=== PATIENT | female | born 1935 | race Caucasian/White ===

== ENCOUNTER → 2017-03-07 | Outpatient (CLI) | payer OTHER ==
[~2017-03-07] MED LIST: ALBUTEROL SULF0.5 M1 INH; ANTI-GAS80 MG PO; ANTIVERT12.5 MG PO; ASPIR-TRIN325 MG PO; CEPHALEXIN500 M1 PO; CLARITIN10 MG PO; CLONIDINE HCL0.1 M1 PO; COUMADIN0.5 M1 PO; COUMADIN0.5 MG PO; COUMADIN3 M1 PO; COUMADIN5 M1 IV; CRESTOR20 MG PO; Catapres-Tts 10.1 MG PO; DEMADEX20 MG PO; DOCUSATE SODIU100 M2 PO; DURICEF500 MG PO; FAMOTIDINE20 MG PO; GLYCOLAX17 GM/DOSE PO; GOOD NEIGHBOR650 MG PO; HUMULIN R100 U/ML SC; HYDROCHLOROTHIA25 MG PO; IMDUR SA60 M1 PO; LEVAQUIN750 MG PO; LISINOPRIL40 MG PO; LOPRESSOR50 M1 PO; LOPRESSOR50 MG PO; Lopressor25 MG PO; MEDROL DOSEPAK4 MG PO; METOPROLOL50 MG PO; MIRALAX POWDER17 G1 PO; NEXIUM40 MG PO; NITROSTAT0.4 MG SL; NORVASC5 MG PO; NYSTATIN 150 M150 ML PO; NYSTATIN100000 U/M PO; PEPCID20 MG PO; PLAVIX75 MG PO; PREMARIN0.625 MG PO; PROTONIX40 MG PO; REGLAN5 MG PO; SENNA CONCENTR8.6 MG PO; TRAMADOL HCL50 MG PO; TRAMADOL50 MG PO; VICODIN 5/500 505 MG PO; VICODIN 500 MG-1 TAB PO; VITAMIN D32000 IU PO; XANAX0.25 MG PO; XANAX0.5 MG PO; ZESTRIL,PRINIVI10 MG PO; ZESTRIL,PRINIVI40 MG PO; ZESTRIL,PRINIVIL5 MG PO; ZESTRIL40 MG PO
== END | disposition home or self-care (01) ==
LOC: US 15:25
DX: M79.605 Pain in left leg (principal); R60.0 Localized edema

== ENCOUNTER → 2017-05-11 | Outpatient (CLI) | payer OTHER ==
[2017-05-11 14:45] LABS: INTERNATIONAL NORM RATIO 2.4 (2.0-3.5); PROTHROMBIN TIME 26.9 SECONDS (9.0-12.4)
== END | disposition home or self-care (01) ==
LOC: LAB 13:26
PROVIDERS: Family Medicine
DX: I73.9 Peripheral vascular disease, unspecified (principal)

== ENCOUNTER → 2017-06-15 | Outpatient (CLI) | payer OTHER ==
[2017-06-15 12:50] LABS: INTERNATIONAL NORM RATIO 1.2 (2.0-3.5); PROTHROMBIN TIME 12.4 SECONDS (9.0-12.4)
== END | disposition home or self-care (01) ==
LOC: LAB 11:44
PROVIDERS: Family Medicine
DX: I73.9 Peripheral vascular disease, unspecified (principal)

== ENCOUNTER → 2017-07-12 | Outpatient (CLI) | payer OTHER ==
[2017-07-12 11:00] LABS: INTERNATIONAL NORM RATIO 1.2 (2.0-3.5); PROTHROMBIN TIME 13.1 SECONDS (9.0-12.4)
== END | disposition home or self-care (01) ==
LOC: LAB 10:06
PROVIDERS: Family Medicine
DX: I73.9 Peripheral vascular disease, unspecified (principal)

== ENCOUNTER → 2017-07-27 | Outpatient (CLI) | payer OTHER ==
[2017-07-27 14:31] LABS: INTERNATIONAL NORM RATIO 2.8 (2.0-3.5)
== END | disposition home or self-care (01) ==
LOC: LAB 13:42
PROVIDERS: Family Medicine
DX: I73.9 Peripheral vascular disease, unspecified (principal)

== ENCOUNTER → 2017-08-17 | Outpatient (CLI) | payer OTHER | END | disposition home or self-care (01) | LOC: US 14:47 | DX: R60.0 Localized edema (principal) ==

== ENCOUNTER → 2017-09-15 | Outpatient (CLI) | payer OTHER ==
[2017-09-15 15:53] LABS: INTERNATIONAL NORM RATIO 3.8 (2.0-3.5)
== END | disposition home or self-care (01) ==
LOC: LAB 14:37
PROVIDERS: Family Medicine
DX: I73.9 Peripheral vascular disease, unspecified (principal)

== ENCOUNTER → 2017-09-22 | Outpatient (CLI) | payer OTHER ==
[2017-09-22 15:45] LABS: INTERNATIONAL NORM RATIO 1.6 (2.0-3.5)
== END | disposition home or self-care (01) ==
LOC: LAB 14:43
PROVIDERS: Family Medicine
DX: I73.9 Peripheral vascular disease, unspecified (principal)

== ENCOUNTER → 2017-10-23 | Outpatient (CLI) | payer OTHER ==
[2017-10-23 10:28] LABS: BASO % 0.1 % (0.0-1.0); EOS # 0.1 10*3/uL (0.0-0.4); EOS % 0.5 % (1.0-4.0); HEMATOCRIT 41.6 % (37.0-47.0); HEMOGLOBIN 14.4 g/dl (12.0-16.0); LYMPH # 2.5 10*3/uL (1.3-4.4); LYMPH % 19.3 % (27.0-41.0); MEAN CELL VOLUME 91.8 fl (81.0-99.0); MEAN CORPUSCULAR HGB 31.8 pg (27.0-31.0); MEAN CORPUSCULAR HGB CONC 34.6 g/dl (33.0-37.0); MEAN PLATELET VOLUME 10.5 fl (9.6-12.3); MONO # 0.9 10*3/uL (0.1-1.0); NEUT # 9.4 10*3/uL (2.3-7.9); NEUT % 72.3 % (47.0-73.0); PLATELET COUNT AUTOMATED 263 10*3/uL (130-400); RED BLOOD COUNT 4.53 10*6/uL (4.10-5.10); RED CELL DISTRI WIDTH 15.9 % (0-14.5)
[2017-10-23 10:50] LABS: BILIRUBIN NEGATIVE (NEGATIVE); BLOOD TRACE-INTACT (NEGATIVE); CLARITY CLOUDY (CLEAR); COLOR YELLOW (YELLOW); GLUCOSE NEGATIVE (NEGATIVE); KETONE NEGATIVE (NEGATIVE); LEUKO ESTERASE NEGATIVE (NEGATIVE); NITRITE NEGATIVE (NEGATIVE); UROBILINOGEN 0.2 E.U./dl (0.2-1.0)
[2017-10-23 10:55] LABS: ALBUMIN 3.3 gm/dl (3.1-4.5); BUN 22 mg/dl (7-24); CHLORIDE 102 mmol/L (98-107); POTASSIUM 5.2 mmol/L (3.5-5.1); SODIUM 137 mmol/L (136-145)
[2017-10-23 11:05] LABS: BACTERIA 3+; WBC 16-20 wbc/hpf (0-5)
[2017-10-23 11:07] LABS: ALKALINE PHOSPHATASE 78 U/L (45-117); BILIRUBIN, DIRECT < 0.1 mg/dL (0.0-0.2); CHOLESTEROL 177 mg/dL (<200); CREATININE 0.74 mg/dL (0.55-1.02); HDL CHOLESTEROL 53 mg/dl (40-60); LDL CHOLESTEROL 46 mg/dL (9-159); SGOT/AST 17 IU/L (3-35); SGPT/ALT 31 U/L (12-78); T3 UPTAKE 34 % (31-39); THYROXINE (T4) TOTAL 7.2 ug/dl (4.8-13.9); TOTAL PROTEIN 7.3 gm/dL (6.4-8.2); TRIGLYCERIDES 390 mg/dl (<150); VLDL CHOLESTEROL 78 mg/dL (6-40)
[2017-10-23 11:15] LABS: INTERNATIONAL NORM RATIO 4.5 (2.0-3.5)
== END | disposition home or self-care (01) ==
LOC: LAB 10:01
PROVIDERS: Family Medicine; Social Worker Clinical
DX: Z13.220 Encounter for screening for lipoid disorders (principal); Z11.59 Encounter for screening for other viral diseases; Z13.0 Encounter for screening for diseases of the blood and blood-forming organs and certain disorders involving the immune mechanism; Z13.1 Encounter for screening for diabetes mellitus; Z13.228 Encounter for screening for other metabolic disorders; R68.89 Other general symptoms and signs; I73.9 Peripheral vascular disease, unspecified; E78.5 Hyperlipidemia, unspecified; I10 Essential (primary) hypertension

== ENCOUNTER → 2017-10-26 | Outpatient (CLI) | payer OTHER ==
[2017-10-26 13:14] LABS: INTERNATIONAL NORM RATIO 2.1 (2.0-3.5)
== END | disposition home or self-care (01) ==
LOC: LAB 12:09
PROVIDERS: Family Medicine
DX: I73.9 Peripheral vascular disease, unspecified (principal)

== ENCOUNTER 2017-11-16 11:03 | Emergency (ER) | payer OTHER ==
[~2017-11-16] VITALS: Ht 154.9 cm; Wt 59.0 kg
[2017-11-16 11:09] VITALS: BP 165/44
== END 2017-11-16 13:53 | disposition home or self-care (01) ==
LOC: ED 11:03
DX: S81.812A Laceration without foreign body, left lower leg, initial encounter (principal); Z88.0 Allergy status to penicillin; Z88.5 Allergy status to narcotic agent; Z79.899 Other long term (current) drug therapy; Z90.49 Acquired absence of other specified parts of digestive tract; Z95.1 Presence of aortocoronary bypass graft; W51.XXXA Accidental striking against or bumped into by another person, initial encounter; Y93.01 Activity, walking, marching and hiking; Y92.098 Other place in other non-institutional residence as the place of occurrence of the external cause; Y99.8 Other external cause status

== ENCOUNTER 2017-11-18 00:01 | Emergency (ER) | payer OTHER ==
[~2017-11-18] VITALS: Ht 157.4 cm; Wt 61.2 kg
[2017-11-18 00:10] VITALS: BP 170/60
[2017-11-18] MEDS ORDERED: CLINDAMYCIN HC300 MG PO (01:41)
== END 2017-11-18 02:09 | disposition home or self-care (01) ==
LOC: ED 00:01
DX: T81.4XXA Infection following a procedure, initial encounter (principal); L08.89 Other specified local infections of the skin and subcutaneous tissue; Z88.0 Allergy status to penicillin; Z88.5 Allergy status to narcotic agent; Z88.8 Allergy status to other drugs, medicaments and biological substances; Z79.899 Other long term (current) drug therapy; Z90.49 Acquired absence of other specified parts of digestive tract; Z95.1 Presence of aortocoronary bypass graft; Z71.6 Tobacco abuse counseling

== ENCOUNTER → 2017-12-06 | Outpatient (CLI) | payer OTHER ==
[~2017-12-06] MED LIST changes: +CLINDAMYCIN HC300 MG PO
[2017-12-06 11:45] LABS: INTERNATIONAL NORM RATIO 2.3 (2.0-3.5)
== END | disposition home or self-care (01) ==
LOC: LAB 02:16 → WOUNDCARE 02:16
PROVIDERS: Family Medicine
DX: I73.9 Peripheral vascular disease, unspecified (principal)

== ENCOUNTER → 2017-12-13 | Outpatient (CLI) | payer OTHER | END | disposition home or self-care (01) | LOC: WOUNDCARE 01:49 | DX: I87.332 Chronic venous hypertension (idiopathic) with ulcer and inflammation of left lower extremity (principal); L97.222 Non-pressure chronic ulcer of left calf with fat layer exposed; Z90.710 Acquired absence of both cervix and uterus ==

== ENCOUNTER → 2017-12-20 | Outpatient (CLI) | payer OTHER | END | disposition home or self-care (01) | LOC: WOUNDCARE 03:05 | DX: I87.332 Chronic venous hypertension (idiopathic) with ulcer and inflammation of left lower extremity (principal); L97.222 Non-pressure chronic ulcer of left calf with fat layer exposed; Z90.710 Acquired absence of both cervix and uterus; Z95.5 Presence of coronary angioplasty implant and graft; Z95.820 Peripheral vascular angioplasty status with implants and grafts ==

== ENCOUNTER → 2017-12-22 | Outpatient (CLI) | payer OTHER | END | disposition home or self-care (01) | LOC: WOUNDCARE 10:00 | DX: I87.332 Chronic venous hypertension (idiopathic) with ulcer and inflammation of left lower extremity (principal); L97.222 Non-pressure chronic ulcer of left calf with fat layer exposed; Z90.710 Acquired absence of both cervix and uterus ==

== ENCOUNTER → 2017-12-27 | Outpatient (CLI) | payer OTHER ==
[2017-12-27 13:15] LABS: INTERNATIONAL NORM RATIO 6.4 (2.0-3.5)
== END | disposition home or self-care (01) ==
LOC: LAB 00:46 → WOUNDCARE 00:46
PROVIDERS: Family Medicine
DX: I70.203 Unspecified atherosclerosis of native arteries of extremities, bilateral legs (principal); I73.9 Peripheral vascular disease, unspecified; L97.222 Non-pressure chronic ulcer of left calf with fat layer exposed; I87.332 Chronic venous hypertension (idiopathic) with ulcer and inflammation of left lower extremity

== ENCOUNTER → 2018-01-02 | Outpatient (CLI) | payer OTHER ==
[2018-01-02 12:20] LABS: INTERNATIONAL NORM RATIO 1.1 (2.0-3.5)
== END | disposition home or self-care (01) ==
LOC: LAB 11:20
PROVIDERS: Family Medicine
DX: I73.9 Peripheral vascular disease, unspecified (principal)

== ENCOUNTER → 2018-03-31 | Outpatient (CLI) | payer OTHER | END | disposition home or self-care (01) | LOC: US 09:58 | DX: R60.0 Localized edema (principal); M79.661 Pain in right lower leg ==

== ENCOUNTER → 2018-05-15 | Outpatient (CLI) | payer OTHER ==
[~2018-05-15] MED LIST changes: +AMINOPHYLLIN200 MG PO; +CARTIA XT240 MG PO; +CLONIDINE0.2 MG PO; -CRESTOR20 MG PO; +CRESTOR40 M1 PO; +GLIPIZIDE ER10 M1 PO; +GLIPIZIDE5 MG PO; +HYDROCODON-ACE1 EACH PO; +IMDUR SA30 MG PO; +ISRADIPINE2.5 MG PO; +LASIX40 MG PO; +LISINOPRIL2.5 MG PO; +LOPRESSOR100 M1 PO; -LOPRESSOR50 M1 PO; +SENEXON-S TABL1 EACH PO; +WARFARIN2 MG PO
[2018-05-15 17:14] LABS: BUN 11 mg/dl (7-24); CHLORIDE 103 mmol/L (98-107); POTASSIUM 4.3 mmol/L (3.5-5.1); SODIUM 139 mmol/L (136-145)
== END | disposition home or self-care (01) ==
LOC: LAB 16:32
PROVIDERS: Nurse Practitioner Family
DX: R60.0 Localized edema (principal)

== ENCOUNTER 2018-05-28 12:45 | Inpatient (IN) | payer OTHER ==
[2018-05-28] VITALS (8 sets, daily range): BP systolic 125–154; BP diastolic 59–87
[~2018-05-28] VITALS: Ht 157.4 cm; Wt 58.5 kg
--- NOTE | ~2018-05-28 | PR ---
[place], [place] PROGRESS NOTE NAME: BHARATH MCDONALD UNIT #: [id number] ROOM: 516 DOCTOR: LASHAE CANDELARIO MD BIRTHDATE: [birth year] DOS: 05/31/2018 CARDIOLOGY FOLLOWUP VISIT NOTE REASON FOR VISIT: Atrial fibrillation. HISTORY OF PRESENT ILLNESS: The patient is feeling better. Her heart rates are controlled. She denies any chest pain or shortness of breath. No palpitations. She is anticipating discharge home today. She is ambulating without much difficulty. REVIEW OF SYSTEMS: Review of the 8 systems negative except as mentioned above. RHYTHM STRIPS: The patient is off monitor at the time of my examination. PHYSICAL EXAMINATION: VITAL SIGNS: Blood pressure 148/72, respirations 18, pulse 63. GENERAL: Alert, comfortable, in no acute distress. HEENT: Pupils are round, equal. No jaundice. Tongue was moist and pharynx clear. NECK: Supple, no distended neck veins, no carotid bruit. CHEST: Symmetrical, nontender. HEART: Slightly irregular. Grade 1/6 systolic murmur. ABDOMEN: Benign, nontender. Bowel sounds normal. EXTREMITIES: Showed 1+ edema. The patient had dressing to both feet. RECTAL: Deferred. GENITOURINARY: Deferred. NEUROLOGIC: The patient is alert, oriented. No focal neurologic deficit. DIAGNOSTIC TESTS: Review of the diagnostic test, INR 2.3. Hemoglobin 10.9. MEDICATIONS AND ALLERGIES: Reviewed. IMPRESSION: 1. Paroxysmal atrial fibrillation with rapid ventricular rate, currently rate controlled, INR therapeutic at 2.3. 2. Coronary artery disease, status post bypass and status post stents. The patient had stress test last week, reports not available. 3. Hypertension, stable. 4. Anemia. Monitor her H and H. 5. Peripheral vascular disease. 6. Diabetes with diabetic foot ulcers. 7. She can be discharged home today. 8. She will follow up with her hotel guest service agent, Dr. Milligan. 9. There is no family at bedside at the time of examination. [place], [place] PROGRESS NOTE NAME: BHARATH MCDONALD UNIT #: [id number] ROOM: 516 DOCTOR: LASHAE CANDELARIO MD BIRTHDATE: [birth year] LASHAE CANDELARIO MD CM:RORO [phone] [id number] LASHAE CANDELARIO MD 05/31/185 interface
--- NOTE | ~2018-05-28 | CON ---
[place], [place] REPORT OF CONSULTATION NAME: BHARATH MCDONALD UNIT #: [id number] ROOM: 516 DOCTOR: LASHAE CANDELARIO MD BIRTHDATE: [birth year] DOS: 05/29/2018 CARDIOLOGY CONSULTATION REASON FOR CONSULTATION: Tachycardia with palpitations and atrial fibrillation. HISTORY OF PRESENT ILLNESS: The patient is an 83-year-old patient with history of coronary artery disease, paroxysmal atrial fibrillation, hypertension, peripheral vascular disease who presented to the hospital for heart palpitations. Evidently, she had a stress test last test at her graduate studies dean's office and since then she was noted to have some intermittent heart palpitations. No associated dizziness or syncope. No nausea, no vomiting, no fever, no chest pains. No bladder or bowel symptoms. Her symptoms are intermittent, last for a few seconds. In the Emergency Room, she was given intravenous beta blockers and was admitted to the hospital and Cardiology was consulted for further recommendations. She follows with Dr. Milligan, graduate studies dean in [place]. REVIEW OF SYSTEMS: Review of the 10 systems negative except as mentioned above. The patient denies any chest pain or shortness of breath. No further palpitations. No nausea, vomiting, or diarrhea. No bladder or bowel symptoms. No neurologic symptoms. No musculoskeletal symptoms. PAST MEDICAL HISTORY: 1. Coronary artery disease, status post bypass in 2002, status post multiple PCIs since then, details unknown. 2. Paroxysmal atrial fibrillation. The patient is on Coumadin at home. 3. Peripheral vascular disease. 4. Hypertension. 5. Diabetes type 2. 6. History of valvular heart disease by echo in 2013. 7. LV hypertrophy due to hypertensive heart disease. 3. Diabetic foot ulcers. SURGICAL HISTORY: History of bypass surgery in 2002 and history of multiple cardiac stents, history of appendectomy, history of lung surgery, history of spinal fusion, history of colectomy. SOCIAL HISTORY: The patient does not smoke or drink. No illicit drugs. She was a former smoker. FAMILY HISTORY: Father from coronary artery disease and heart failure. Mother from coronary artery disease. ALLERGIES: Reviewed including PENICILLIN, NITROFURANTOIN, and OXYCODONE. HOME MEDICATIONS: Reviewed. The pertinent cardiac medications include warfarin, Crestor, metoprolol, and isosorbide. PHYSICAL EXAMINATION: [place], [place] REPORT OF CONSULTATION NAME: BHARATH MCDONALD UNIT #: [id number] ROOM: 516 DOCTOR: ANDREE PIZANO,LASHAE BIRTHDATE: [birth year] VITAL SIGNS: Blood pressure 136/48, pulse 88, respirations 18, weight of 58.5 kilos with a BMI 23.6. GENERAL: The patient is alert, comfortable, in no acute distress. HEAD AND NECK: Pupils are round and equal. No jaundice. Tongue was moist and pharynx clear. NECK: Supple, no distended neck veins, no carotid bruit. CHEST: Symmetrical, nontender. LUNGS: A few scattered rhonchi, but good air entry bilaterally. HEART: Regular rhythm, no S3. Grade 1/6 systolic murmur. ABDOMEN: Benign, nontender. Bowel sounds normal. EXTREMITIES: Showed 1+ edema. The patient's both feet are in a dressing. Distal pulses are fair. RECTAL: Deferred. GENITOURINARY: Deferred. NEUROLOGIC: The patient is alert and oriented. No focal neurologic deficit. MUSCULOSKELETAL: No joint tenderness or swelling. REVIEW OF THE DIAGNOSTIC TESTS: EKG showed sinus tachycardia with lateral ST-T changes. Rhythm strip showed sinus rhythm with intermittent atrial fibrillation with rapid ventricular rate. Her CBC, chemistry and imaging studies reviewed. IMPRESSION: 1. Paroxysmal atrial fibrillation with rapid ventricular rate. 2. Coronary artery disease, status of bypass surgery in 2002, status post multiple interventions. 3. Hypertension. 4. Left ventricular hypertrophy with hypertensive heart disease. 5. Peripheral vascular disease with diabetic foot ulcers. 6. Diabetes type 2. 7. History of mild valvular heart disease. RECOMMENDATIONS: 1. Continue her beta blockers. 2. Add digoxin 0.125 mg daily for rate control. 3. Continue her Cardizem and monitor her heart rate and blood pressures. 4. We will try to obtain her stress test report, which was done last week. 5. Continue Lovenox for her subtherapeutic INR due to her high CHADS2-VASc score of 6. 6. She will follow with her graduate studies dean, Dr. Milligan after the discharge. [place], [place] REPORT OF CONSULTATION NAME: BHARATH MCDONALD UNIT #: [id number] ROOM: 516 DOCTOR: LASHAE CANDELARIO MD BIRTHDATE: [birth year] LASHAE CANDELARIO MD CM:CONSTR:REPORT OF CONSULTATION 1159 05/30/18 0134 interface
--- NOTE | ~2018-05-28 | PR ---
[place], [place] PROGRESS NOTE NAME: [facility]ALD [id number] UNIT #: [id number] ROOM: 516 DOCTOR: CHERISE BAH MD BIRTHDATE: [birth year] DOS: 05/30/2018 CARDIOLOGY PROGRESS NOTE SUBJECTIVE: The patient was seen at her bedside today 05/30/2018 for followup of her paroxysmal atrial fibrillation with rapid ventricular response. She has converted to sinus rhythm. She tells me that she feels well now. Her heart rate and blood pressure are still quite variable. This morning, her heart rate was in the 50s and even high 40s. This afternoon, her heart rate is more reasonable in the mid 60s, but her blood pressure has gone up to 170/60. The patient states that this is pretty good for her and her blood pressure is often much higher. She denies any headache, palpitations, chest pain or dyspnea. She did have a pharmacologic stress test a week ago at her manager home improvement's office in [place], [place]. She has not yet gotten the results from that study. Apparently, the study was done in the physician's private office. PHYSICAL EXAMINATION: VITAL SIGNS: Today, her pulse is 65 and regular, blood pressure is 173/66. She is afebrile. She weighs 58.5 kg and has a body mass index 23.6. NECK: Supple. She has no jugular distention. Carotids are full. I did not hear any bruits. LUNGS: Respirations were unlabored. Her chest was clear. HEART: Had a regular rhythm with an occasional premature beat. She has an S4 gallop, but no S3. ABDOMEN: Benign. EXTREMITIES: Wrapped in Unna boots. She does have venous ulcers reportedly present. LABORATORY DATA: Hemoglobin today is 8.9 with a white count of 8000 and a platelet count of 332,000. INR is therapeutic at 2.0. Sodium is 139, potassium 4.8, BUN 20, creatinine 0.76. IMPRESSION: 1. Paroxysmal atrial fibrillation with rapid ventricular response. 2. Hypertension, which has been difficult to control. 3. History of coronary artery disease, status post bypass surgery in 2002 with multiple other interventions as well. 4. Hypertensive heart disease with left ventricular hypertrophy. 5. Peripheral vascular disease with diabetic foot ulcers. 6. Type 2 diabetes mellitus. PLAN: I would continue her current medical regimen. If her vital signs remained relatively stable overnight, we could plan on discharge tomorrow morning. The patient is anxious to go home, so that she can present for her wound care visit, which is scheduled for 05/31/2018 in the afternoon. She will be encouraged to follow up closely with her primary manager home improvement, palomo [place], [place] PROGRESS NOTE NAME: BHARATH MCDONALD UNIT #: [id number] ROOM: 516 DOCTOR: OLVIN PIZANO,CHERISE BIRTHDATE: [birth year] will remain available to see her as needed. We thank the hospitalist physicians for asking our advice regarding her care. CHERISE BAH MD CM:PNTRANS [phone] CHERISE BAH MD 05/31/18 0113 interface
[~2018-05-28 12:45] MED LIST changes: -AMINOPHYLLIN200 MG PO; -CARTIA XT240 MG PO; -CLONIDINE0.2 MG PO; -GLIPIZIDE ER10 M1 PO; -GLIPIZIDE5 MG PO; -HYDROCODON-ACE1 EACH PO; -IMDUR SA30 MG PO; -ISRADIPINE2.5 MG PO; -LASIX40 MG PO; -LISINOPRIL2.5 MG PO; -SENEXON-S TABL1 EACH PO; -WARFARIN2 MG PO
[2018-05-28 13:29] LABS: BASO # 0.1 10*3/uL (0.0-0.1); BASO % 0.5 % (0.0-1.0); EOS # 0.1 10*3/uL (0.0-0.4); EOS % 0.4 % (1.0-4.0); HEMATOCRIT 39.5 % (37.0-47.0); HEMOGLOBIN 13.3 g/dl (12.0-16.0); LYMPH # 2.2 10*3/uL (1.3-4.4); LYMPH % 15.5 % (27.0-41.0); MEAN CELL VOLUME 92.3 fl (81.0-99.0); MEAN CORPUSCULAR HGB 31.1 pg (27.0-31.0); MEAN CORPUSCULAR HGB CONC 33.7 g/dl (33.0-37.0); MEAN PLATELET VOLUME 10.1 fl (9.6-12.3); MONO # 0.9 10*3/uL (0.1-1.0); MONO % 6.1 % (3.0-9.0); NEUT # 10.7 10*3/uL (2.3-7.9); NEUT % 77.1 % (47.0-73.0); PLATELET COUNT AUTOMATED 433 10*3/uL (130-400); RED BLOOD COUNT 4.28 10*6/uL (4.10-5.10); RED CELL DISTRI WIDTH 15.5 % (0-14.5); WHITE BLOOD COUNT 13.9 10*3/uL (4.8-10.8)
[2018-05-28 13:38] LABS: INTERNATIONAL NORM RATIO 1.3 (2.0-3.5)
[2018-05-28 13:50] LABS: ALBUMIN 2.7 gm/dl (3.1-4.5); ALKALINE PHOSPHATASE 122 U/L (45-117); BUN 15 mg/dl (7-24); CHLORIDE 101 mmol/L (98-107); CREATININE 0.88 mg/dL (0.55-1.02); POTASSIUM 3.1 mmol/L (3.5-5.1); SGOT/AST 19 IU/L (3-35); SGPT/ALT 22 U/L (12-78); SODIUM 139 mmol/L (136-145); TOTAL PROTEIN 7.8 gm/dL (6.4-8.2)
[2018-05-28] MEDS ORDERED: SENEXON-S TABL1 EACH PO (18:00)
[2018-05-28] MEDS ORDERED: CLONIDINE0.2 MG PO (18:01)
[2018-05-28] MEDS ORDERED: GLIPIZIDE5 MG PO ×2 (18:02→19:03)
[2018-05-28] MEDS ORDERED: WARFARIN2 MG PO (18:55)
[2018-05-28] MEDS ORDERED: IMDUR SA30 MG PO (18:59)
[2018-05-28] MEDS ORDERED: CARTIA XT240 MG PO (19:00)
[2018-05-28] MEDS ORDERED: HYDROCODON-ACE1 EACH PO (19:05)
[2018-05-28] MEDS ORDERED: ISRADIPINE2.5 MG PO (19:06)
[2018-05-28] MEDS ORDERED: LASIX40 MG PO (19:06)
[2018-05-28] MEDS ORDERED: GLIPIZIDE ER10 M1 PO (19:10)
[2018-05-29 01:18] VITALS: BP 136/48
[2018-05-29 04:27] LABS: BASO # 0.1 10*3/uL (0.0-0.1); BASO % 0.5 % (0.0-1.0); EOS # 0.2 10*3/uL (0.0-0.4); EOS % 1.6 % (1.0-4.0); LYMPH # 2.5 10*3/uL (1.3-4.4); LYMPH % 27.6 % (27.0-41.0); MEAN CELL VOLUME 93.7 fl (81.0-99.0); MEAN CORPUSCULAR HGB 31.1 pg (27.0-31.0); MEAN CORPUSCULAR HGB CONC 33.2 g/dl (33.0-37.0); MEAN PLATELET VOLUME 10.1 fl (9.6-12.3); MONO # 0.7 10*3/uL (0.1-1.0); MONO % 7.1 % (3.0-9.0); NEUT # 5.8 10*3/uL (2.3-7.9); NEUT % 62.9 % (47.0-73.0); PLATELET COUNT AUTOMATED 350 10*3/uL (130-400); RED BLOOD COUNT 3.47 10*6/uL (4.10-5.10); RED CELL DISTRI WIDTH 15.5 % (0-14.5); WHITE BLOOD COUNT 9.2 10*3/uL (4.8-10.8)
[2018-05-29 04:28] LABS: HEMOGLOBIN 10.8 g/dl (12.0-16.0)
[2018-05-29 04:29] LABS: HEMATOCRIT 32.5 % (37.0-47.0)
[2018-05-29 04:40] LABS: BUN 13 mg/dl (7-24); CHLORIDE 109 mmol/L (98-107); CREATININE 0.65 mg/dL (0.55-1.02); POTASSIUM 3.8 mmol/L (3.5-5.1); SODIUM 145 mmol/L (136-145)
[2018-05-29 04:45] LABS: PHOSPHOROUS 2.5 mg/dL (2.5-4.9)
[2018-05-29 06:35] LABS: BILIRUBIN NEGATIVE (NEGATIVE); BLOOD 2+ (NEGATIVE); CLARITY CLOUDY (CLEAR); COLOR YELLOW (YELLOW); GLUCOSE NEGATIVE (NEGATIVE); KETONE NEGATIVE (NEGATIVE); LEUKO ESTERASE 3+ (NEGATIVE); NITRITE POSITIVE (NEGATIVE); SPECIFIC GRAVITY 1.015 (1.005-1.030); UROBILINOGEN 0.2 E.U./dl (0.2-1.0)
[2018-05-29 06:43] LABS: BACTERIA 4+; RBC TNTC rbc/hpf (0-2); WBC TNTC wbc/hpf (0-5)
[2018-05-29 07:28] LABS: VITAMIN D, 25-HYDROXY 25.9 ng/mL (30-100)
[2018-05-29 08:00] VITALS: BP 137/60
[2018-05-29 09:03] LABS: INTERNATIONAL NORM RATIO 1.4 (2.0-3.5)
[2018-05-29 12:00] VITALS: BP 90/58
[2018-05-29 14:30] VITALS: BP 92/54
[2018-05-29 16:00] VITALS: BP 111/49
[2018-05-29 20:00] VITALS: BP 138/56
[2018-05-30] VITALS: BP 102/56
[2018-05-30 06:31] LABS: BASO # 0.1 10*3/uL (0.0-0.1); BASO % 0.9 % (0.0-1.0); EOS # 0.2 10*3/uL (0.0-0.4); HEMATOCRIT 33.3 % (37.0-47.0); HEMOGLOBIN 10.9 g/dl (12.0-16.0); LYMPH # 2.8 10*3/uL (1.3-4.4); LYMPH % 34.5 % (27.0-41.0); MEAN CELL VOLUME 94.9 fl (81.0-99.0); MEAN CORPUSCULAR HGB 31.1 pg (27.0-31.0); MEAN CORPUSCULAR HGB CONC 32.7 g/dl (33.0-37.0); MEAN PLATELET VOLUME 10.4 fl (9.6-12.3); MONO # 0.6 10*3/uL (0.1-1.0); MONO % 6.9 % (3.0-9.0); NEUT # 4.4 10*3/uL (2.3-7.9); NEUT % 55.3 % (47.0-73.0); PLATELET COUNT AUTOMATED 332 10*3/uL (130-400); RED BLOOD COUNT 3.51 10*6/uL (4.10-5.10); RED CELL DISTRI WIDTH 15.5 % (0-14.5)
[2018-05-30 07:04] LABS: BUN 20 mg/dl (7-24); CHLORIDE 105 mmol/L (98-107); CREATININE 0.76 mg/dL (0.55-1.02)
[2018-05-30 07:10] LABS: SODIUM 139 mmol/L (136-145)
[2018-05-30 07:19] LABS: POTASSIUM 4.8 mmol/L (3.5-5.1)
[2018-05-30 08:00] VITALS: BP 128/65
[2018-05-30 12:00] VITALS: BP 171/73
[2018-05-30 16:00] VITALS: BP 173/66
[2018-05-30 20:00] VITALS: BP 163/53
[2018-05-30 20:48] VITALS: BP 149/68
[2018-05-31] VITALS: BP 129/59
[2018-05-31 07:30] LABS: INTERNATIONAL NORM RATIO 2.3 (2.0-3.5)
[2018-05-31 08:00] VITALS: BP 178/78
[2018-05-31] MEDS ORDERED: AMINOPHYLLIN200 MG PO (10:18)
[2018-05-31] MEDS ORDERED: LISINOPRIL2.5 MG PO (10:18)
== END 2018-05-31 11:12 | disposition home health service (06) | DRG 308 ==
LOC: ED 12:45 → 5E 15:51 → EDHOLD 15:51 → 5E 16:05
PROVIDERS: Family Medicine; Internal Medicine; Nurse Practitioner Family; Student in an Organized Health Care Education/Training Program
DX: I48.0 Paroxysmal atrial fibrillation (principal); E43 Unspecified severe protein-calorie malnutrition; R65.10 Systemic inflammatory response syndrome (SIRS) of non-infectious origin without acute organ dysfunction; E11.51 Type 2 diabetes mellitus with diabetic peripheral angiopathy without gangrene; E11.621 Type 2 diabetes mellitus with foot ulcer; E11.65 Type 2 diabetes mellitus with hyperglycemia; I08.1 Rheumatic disorders of both mitral and tricuspid valves; N39.0 Urinary tract infection, site not specified; Z68.23 Body mass index [BMI] 23.0-23.9, adult; D64.9 Anemia, unspecified; D72.829 Elevated white blood cell count, unspecified; D47.3 Essential (hemorrhagic) thrombocythemia; E87.6 Hypokalemia; R74.8 Abnormal levels of other serum enzymes; R79.1 Abnormal coagulation profile; I99.8 Other disorder of circulatory system; E78.1 Pure hyperglyceridemia; I25.10 Atherosclerotic heart disease of native coronary artery without angina pectoris; F41.9 Anxiety disorder, unspecified; Z96.653 Presence of artificial knee joint, bilateral; I11.9 Hypertensive heart disease without heart failure; L97.509 Non-pressure chronic ulcer of other part of unspecified foot with unspecified severity; Z98.61 Coronary angioplasty status; Z98.1 Arthrodesis status; Z90.49 Acquired absence of other specified parts of digestive tract; Z95.1 Presence of aortocoronary bypass graft; Z98.42 Cataract extraction status, left eye; Z98.41 Cataract extraction status, right eye; Z87.891 Personal history of nicotine dependence; Z88.0 Allergy status to penicillin; Z88.8 Allergy status to other drugs, medicaments and biological substances; Z79.899 Other long term (current) drug therapy; Z79.01 Long term (current) use of anticoagulants; Z93.3 Colostomy status; Z82.49 Family history of ischemic heart disease and other diseases of the circulatory system; Z80.8 Family history of malignant neoplasm of other organs or systems

== ENCOUNTER → 2018-06-19 | Outpatient (CLI) | payer OTHER ==
[~2018-06-19] MED LIST changes: +AMINOPHYLLIN200 MG PO; +CARTIA XT240 MG PO; +CLONIDINE0.2 MG PO; +GLIPIZIDE ER10 M1 PO; +GLIPIZIDE5 MG PO; +HYDROCODON-ACE1 EACH PO; +IMDUR SA30 MG PO; +ISRADIPINE2.5 MG PO; +LASIX40 MG PO; +LISINOPRIL2.5 MG PO; +SENEXON-S TABL1 EACH PO; +WARFARIN2 MG PO
== END | disposition home or self-care (01) ==
LOC: RAD 10:35
DX: J20.9 Acute bronchitis, unspecified (principal)

== ENCOUNTER → 2018-07-03 | Outpatient (CLI) | payer OTHER | END | disposition home or self-care (01) | LOC: RAD 15:35 | DX: R05 Cough (principal); I25.2 Old myocardial infarction; I10 Essential (primary) hypertension; E11.9 Type 2 diabetes mellitus without complications; Z87.891 Personal history of nicotine dependence; Z95.1 Presence of aortocoronary bypass graft ==

== ENCOUNTER 2018-10-02 15:35 | Inpatient (IN) | payer OTHER ==
[~2018-10-02] VITALS: Ht 157.5 cm; Wt 57.8 kg
--- NOTE | ~2018-10-02 | EKG ---
[place], [place] ELECTROCARDIOGRAM REPORT NAME: BHARATH MCDONALD UNIT #: [id number] ROOM: 520 DOCTOR: CHERIE DRAFT REPORT BIRTHDATE: [birth year] [facility] Test Date: 2018-10-02 Test Time: 16:38:32 Pat Name: BHARATH MCDONALD Department: Room: 520 Gender: F Clinical Nutrition Manager: Sarina Chilel : [id number] Requested By: ESTEFANY BRISCOE Order Number: [id number] Reading MD: Lionel Andrade MD Measurements Intervals Devers Rate: 68 P: 20 IN: 135 QRS: 5 QRSD: 100 T: 136 QT: 438 QTc: 466 Interpretive Statements Sinus rhythm Atrial premature complex Probable left atrial enlargement Abnormal R-wave progression, late transition LVH with secondary repolarization abnormality Baseline wander in lead(s) V1 Electronically Signed On 10-04-2018 14:30:41 PST by Lionel Andrade MD CM:EKGRPT:ELECTROCARDIOGRAM REPORT [id number] ESTEFANY MILAN DRAFT REPORT ESTEFANY BRISCOE DO
[2018-10-02 15:40] VITALS: BP 141/66
[2018-10-02 16:52] LABS: BASO % 0.2 % (0.0-1.0); EOS # 0.1 10*3/uL (0.0-0.4); EOS % 0.5 % (1.0-4.0); HEMATOCRIT 35.7 % (37.0-47.0); HEMOGLOBIN 12.8 g/dl (12.0-16.0); LYMPH # 1.6 10*3/uL (1.3-4.4); LYMPH % 12.4 % (27.0-41.0); MEAN CELL VOLUME 91.3 fl (81.0-99.0); MEAN CORPUSCULAR HGB 32.7 pg (27.0-31.0); MEAN CORPUSCULAR HGB CONC 35.9 g/dl (33.0-37.0); MEAN PLATELET VOLUME 10.4 fl (9.6-12.3); MONO # 0.6 10*3/uL (0.1-1.0); MONO % 4.4 % (3.0-9.0); NEUT # 10.7 10*3/uL (2.3-7.9); NEUT % 81.6 % (47.0-73.0); NUCLEATED RED BLOOD CELL 0.1 10*3/uL (0.0-0.0); NUCLEATED RED BLOOD CELL 0.5 % (0.0-0.0); PLATELET COUNT AUTOMATED 203 10*3/uL (130-400); RED BLOOD COUNT 3.91 10*6/uL (4.10-5.10); WHITE BLOOD COUNT 13.1 10*3/uL (4.8-10.8)
[2018-10-02 17:08] LABS: ACT PARTIAL THROMBO TIME 45.3 SECONDS (20.8-31.5)
[2018-10-02 17:11] LABS: BILIRUBIN NEGATIVE (NEGATIVE); BLOOD 3+ (NEGATIVE); CLARITY CLOUDY (CLEAR); COLOR YELLOW (YELLOW); GLUCOSE TRACE (NEGATIVE); KETONE NEGATIVE (NEGATIVE); LEUKO ESTERASE NEGATIVE (NEGATIVE); NITRITE NEGATIVE (NEGATIVE); SPECIFIC GRAVITY >= 1.030 (1.005-1.030)
[2018-10-02 17:15] LABS: INTERNATIONAL NORM RATIO 6.5 (2.0-3.5)
[2018-10-02 17:21] LABS: ALKALINE PHOSPHATASE 89 U/L (45-117); BUN 18 mg/dl (7-24); CHLORIDE 98 mmol/L (98-107); CREATININE 0.69 mg/dL (0.55-1.02); LIPASE 574 U/L (73-393); POTASSIUM 3.9 mmol/L (3.5-5.1); SGOT/AST 17 IU/L (3-35); SGPT/ALT 37 U/L (12-78); SODIUM 134 mmol/L (136-145); TOTAL PROTEIN 7.1 gm/dL (6.4-8.2); TROPONIN I 0.026 ng/ml (<0.045)
[2018-10-02 17:24] LABS: BACTERIA 4+; RBC 41-50 rbc/hpf (0-2)
[2018-10-02 18:09] VITALS: BP 158/84
[2018-10-02 19:40] VITALS: BP 200/88
[2018-10-02] MEDS ORDERED: WARFARIN SOD5 MG PO (20:18)
[2018-10-02] MEDS ORDERED: COUMADIN2.5 M1 PO (20:19)
[2018-10-02 20:44] VITALS: BP 200/88
[2018-10-02 22:33] VITALS: BP 140/62
[2018-10-03] VITALS: BP 130/47
[2018-10-03 04:00] VITALS: BP 140/70
[2018-10-03 06:45] LABS: BASO % 0.1 % (0.0-1.0); EOS % 0.3 % (1.0-4.0); HEMATOCRIT 37.3 % (37.0-47.0); HEMOGLOBIN 13.1 g/dl (12.0-16.0); LYMPH # 1.6 10*3/uL (1.3-4.4); LYMPH % 15.9 % (27.0-41.0); MEAN CORPUSCULAR HGB 32.7 pg (27.0-31.0); MEAN CORPUSCULAR HGB CONC 35.1 g/dl (33.0-37.0); MEAN PLATELET VOLUME 10.2 fl (9.6-12.3); MONO # 0.5 10*3/uL (0.1-1.0); MONO % 4.6 % (3.0-9.0); NEUT # 7.9 10*3/uL (2.3-7.9); NUCLEATED RED BLOOD CELL 0.1 10*3/uL (0.0-0.0); NUCLEATED RED BLOOD CELL 0.7 % (0.0-0.0); PLATELET COUNT AUTOMATED 205 10*3/uL (130-400); RED BLOOD COUNT 4.01 10*6/uL (4.10-5.10); RED CELL DISTRI WIDTH 17.9 % (0-14.5); WHITE BLOOD COUNT 10.1 10*3/uL (4.8-10.8)
[2018-10-03 07:03] LABS: BUN 16 mg/dl (7-24); CHLORIDE 101 mmol/L (98-107); CHOLESTEROL 191 mg/dL (<200); CREATININE 0.81 mg/dL (0.55-1.02); HDL CHOLESTEROL 36 mg/dl (40-60); LIPASE 350 U/L (73-393); POTASSIUM 4.1 mmol/L (3.5-5.1); SODIUM 136 mmol/L (136-145)
[2018-10-03 07:26] LABS: INTERNATIONAL NORM RATIO 6.4 (2.0-3.5)
[2018-10-03 07:42] LABS: TRIGLYCERIDES 1043 mg/dl (<150)
[2018-10-03 08:00] VITALS: BP 175/72
[2018-10-03 12:00] VITALS: BP 140/59
== END 2018-10-03 14:10 | disposition home health service (06) | DRG 194 ==
LOC: ED 15:35 → 5E 18:19 → EDHOLD 18:19 → 5E 18:38
PROVIDERS: Emergency Medicine; Internal Medicine
DX: J18.1 Lobar pneumonia, unspecified organism (principal); E87.2 Acidosis; E87.1 Hypo-osmolality and hyponatremia; E44.0 Moderate protein-calorie malnutrition; N39.0 Urinary tract infection, site not specified; I50.32 Chronic diastolic (congestive) heart failure; D68.9 Coagulation defect, unspecified; I25.811 Atherosclerosis of native coronary artery of transplanted heart without angina pectoris; D68.59 Other primary thrombophilia; I11.0 Hypertensive heart disease with heart failure; D72.9 Disorder of white blood cells, unspecified; E83.41 Hypermagnesemia; E78.5 Hyperlipidemia, unspecified; E11.65 Type 2 diabetes mellitus with hyperglycemia; E11.51 Type 2 diabetes mellitus with diabetic peripheral angiopathy without gangrene; I48.0 Paroxysmal atrial fibrillation; F41.9 Anxiety disorder, unspecified; Z96.653 Presence of artificial knee joint, bilateral; Z95.5 Presence of coronary angioplasty implant and graft; Z90.49 Acquired absence of other specified parts of digestive tract; Z98.1 Arthrodesis status; Z95.1 Presence of aortocoronary bypass graft; Z98.42 Cataract extraction status, left eye; Z98.41 Cataract extraction status, right eye; Z82.49 Family history of ischemic heart disease and other diseases of the circulatory system; Z88.0 Allergy status to penicillin; Z88.6 Allergy status to analgesic agent; Z88.8 Allergy status to other drugs, medicaments and biological substances; Z79.899 Other long term (current) drug therapy; Z79.84 Long term (current) use of oral hypoglycemic drugs; Z68.23 Body mass index [BMI] 23.0-23.9, adult

== ENCOUNTER → 2019-04-11 | Outpatient (CLI) | payer OTHER ==
[~2019-04-11] MED LIST changes: +COUMADIN2.5 M1 PO; +WARFARIN SOD5 MG PO
== END | disposition home or self-care (01) ==
LOC: MRI 10:00
DX: E11.621 Type 2 diabetes mellitus with foot ulcer (principal); M86.172 Other acute osteomyelitis, left ankle and foot

== ENCOUNTER 2019-08-22 11:46 | Emergency (ER) | payer OTHER ==
[~2019-08-22] VITALS: Ht 157.4 cm; Wt 68.0 kg
[2019-08-22 11:46] VITALS: BP 138/55
== END 2019-08-22 11:54 | disposition home or self-care (01) ==
LOC: ED 11:46
DX: Z45.2 Encounter for adjustment and management of vascular access device (principal); I25.10 Atherosclerotic heart disease of native coronary artery without angina pectoris; E11.9 Type 2 diabetes mellitus without complications; I50.9 Heart failure, unspecified; I11.0 Hypertensive heart disease with heart failure; E78.5 Hyperlipidemia, unspecified; I48.0 Paroxysmal atrial fibrillation; Z79.01 Long term (current) use of anticoagulants; Z88.0 Allergy status to penicillin; Z88.6 Allergy status to analgesic agent; Z88.1 Allergy status to other antibiotic agents; Z79.899 Other long term (current) drug therapy; Z87.891 Personal history of nicotine dependence

== ENCOUNTER 2019-08-28 10:48 | Emergency (ER) | payer OTHER ==
[~2019-08-28] VITALS: Ht 157.4 cm; Wt 57.2 kg
[2019-08-28 10:50] VITALS: BP 159/37
--- NOTE | 2019-08-28 11:39 | NUR ---
Daughter at bedside, she spoke with patient's wound doctor and the wound doctor wants a culture done to patient's right foot wound.
[2019-08-28 11:53] VITALS: BP 137/80
[2019-08-28 12:06] LABS: BASO # 0.1 10*3/uL (0.0-0.1); BASO % 0.5 % (0.0-1.0); EOS # 0.2 10*3/uL (0.0-0.4); HEMATOCRIT 36.3 % (37.0-47.0); HEMOGLOBIN 12.6 g/dl (12.0-16.0); LYMPH % 19.5 % (27.0-41.0); MEAN CELL VOLUME 92.1 fl (81.0-99.0); MEAN CORPUSCULAR HGB CONC 34.7 g/dl (33.0-37.0); MONO % 6.4 % (3.0-9.0); NEUT # 10.9 10*3/uL (2.3-7.9); NEUT % 71.8 % (47.0-73.0); PLATELET COUNT AUTOMATED 452 10*3/uL (130-400); RED BLOOD COUNT 3.94 10*6/uL (4.10-5.10); RED CELL DISTRI WIDTH 15.7 % (0-14.5); WHITE BLOOD COUNT 15.2 10*3/uL (4.8-10.8)
[2019-08-28 12:13] LABS: ACT PARTIAL THROMBO TIME 40.1 SECONDS (20.0-32.1); INTERNATIONAL NORM RATIO 1.4 (2.0-3.5)
[2019-08-28 12:20] LABS: ALBUMIN 2.5 gm/dl (3.1-4.5); ALKALINE PHOSPHATASE 143 U/L (45-117); BUN 11 mg/dl (7-24); CHLORIDE 102 mmol/L (98-107); CREATININE 0.72 mg/dL (0.55-1.02); POTASSIUM 4.2 mmol/L (3.5-5.1); SGOT/AST 16 IU/L (3-35); SGPT/ALT 20 U/L (12-78); SODIUM 136 mmol/L (136-145); TOTAL PROTEIN 7.2 gm/dL (6.4-8.2)
[2019-08-28 12:42] LABS: TROPONIN I 0.202 ng/ml (<0.045)
--- NOTE | 2019-08-28 12:42 | NUR ---
DR. RIVERA NOTIFIED OF CRITICAL TROPONIN.
--- NOTE | 2019-08-28 13:35 | NUR ---
Attempted to call report. No inpatient nurse available at this time.
--- NOTE | 2019-08-28 13:48 | NUR ---
Hospitalist spoke with ER physician. Patient is to be transferred.
--- NOTE | 2019-08-28 16:13 | NUR ---
[facility] team here to transport patient.
== END 2019-08-28 16:13 | disposition short-term general hospital (02) ==
LOC: ED 10:48 → EDHOLD 13:11 → ED 13:11 → EDHOLD 13:25 → 4E 13:25 → ED 16:13
PROVIDERS: Emergency Medicine
DX: L08.9 Local infection of the skin and subcutaneous tissue, unspecified (principal); R79.89 Other specified abnormal findings of blood chemistry; R51 Headache; L89.893 Pressure ulcer of other site, stage 3; E11.621 Type 2 diabetes mellitus with foot ulcer; I25.10 Atherosclerotic heart disease of native coronary artery without angina pectoris; I11.0 Hypertensive heart disease with heart failure; I50.30 Unspecified diastolic (congestive) heart failure; E78.5 Hyperlipidemia, unspecified; I48.0 Paroxysmal atrial fibrillation; E11.51 Type 2 diabetes mellitus with diabetic peripheral angiopathy without gangrene; Z88.0 Allergy status to penicillin; Z88.1 Allergy status to other antibiotic agents; Z88.6 Allergy status to analgesic agent; Z79.899 Other long term (current) drug therapy; Z90.49 Acquired absence of other specified parts of digestive tract; Z87.891 Personal history of nicotine dependence; Z79.01 Long term (current) use of anticoagulants; W01.198A Fall on same level from slipping, tripping and stumbling with subsequent striking against other object, initial encounter; Y93.89 Activity, other specified; Y92.098 Other place in other non-institutional residence as the place of occurrence of the external cause; Y99.8 Other external cause status

== ENCOUNTER 2019-10-06 09:53 | Emergency (ER) | payer OTHER ==
[~2019-10-06] VITALS: Wt 77.1 kg
[2019-10-06 09:53] VITALS: BP 00/00
== END 2019-10-06 11:45 | disposition expired ==
LOC: ED 09:53
DX: I46.9 Cardiac arrest, cause unspecified (principal); E11.40 Type 2 diabetes mellitus with diabetic neuropathy, unspecified; E11.51 Type 2 diabetes mellitus with diabetic peripheral angiopathy without gangrene; I25.10 Atherosclerotic heart disease of native coronary artery without angina pectoris; I11.0 Hypertensive heart disease with heart failure; I50.30 Unspecified diastolic (congestive) heart failure; E78.5 Hyperlipidemia, unspecified; I25.2 Old myocardial infarction; I48.0 Paroxysmal atrial fibrillation; Z88.0 Allergy status to penicillin; Z88.1 Allergy status to other antibiotic agents; Z88.6 Allergy status to analgesic agent; Z79.899 Other long term (current) drug therapy; Z79.01 Long term (current) use of anticoagulants; Z90.49 Acquired absence of other specified parts of digestive tract; Z87.891 Personal history of nicotine dependence; Z90.710 Acquired absence of both cervix and uterus; Z89.431 Acquired absence of right foot; Z95.1 Presence of aortocoronary bypass graft